=== PATIENT | female | born 1970 | race Caucasian/White ===

== ENCOUNTER 2017-06-28 07:37 | Inpatient (IN) | payer BC ==
[~2017-06-28] VITALS: Ht 165.1 cm; Wt 95.7 kg
[~2017-06-28 07:37] MED LIST: BACITRACIN 50,000 UNIT VIAL ONE; BUPIVACAINE 7.5MG/ML /DEXTROSE 82.5MG/ML 2 ML AMP INJ ONE; CEFAZOLIN SOD 2 GM/D5W 50ML 50 ML IV ONE; CELECOXIB 200 MG CAP ONE; DEXAMETHASONE SOD PHOS 10 MG/1 ML VIAL ONE; GABAPENTIN 300 MG CAP ONE; HYDROGEN PEROXIDE 120 ML BTL ONE; LOSARTAN POTASS25 MG; MELATONIN3 MG PO; MUPIROCIN 2% OINT 22 GM TUBE ONE; PREVACID30 M1; ROPIVACAINE 246.25 MG, EPINEPHRINE HCL 1:1000 0.5 MG, CLONIDINE HCL 0.08 MG, KETOROLAC ... INJ ONE; TRANEXAMIC ACID 1,000 MG/10 ML ML ONE; TRAVATAN Z5 ML OP; ZYRTEC10 M3
[2017-06-28] MEDS ORDERED: DOCUSATE SODIUM 100 MG CAP PO PRN (08:45)
[2017-06-28] MEDS ORDERED: ONDANSETRON HCL INJ 2 MG/ML VIAL IV PRN (08:45)
[2017-06-28] MEDS ORDERED: PROMETHAZINE HCL (IM) 25 MG/ML VIAL IM PRN (08:45)
[2017-06-28] MEDS ORDERED: ACETAMINOPHEN 650 MG SUPP PR PRN (08:45)
[2017-06-28] MEDS ORDERED: HYDROCODONE/APAP 7.5MG-325MG 1 EA TAB PO PRN (08:45)
[2017-06-28] MEDS ORDERED: DIPHENHYDRAMINE HCL INJ 50 MG/ML VIAL IM/IV PRN (08:45)
[2017-06-28] MEDS ORDERED: CELECOXIB 100 MG CAP PO SCH (09:00)
--- NOTE | 2017-06-28 09:21 | Diagnostic Imaging Report ---
PROCEDURE:X-RAY PELVIS, AP VIEW COMPARISON:None. INDICATIONS:STATUS POST RIGHT HIP SURGERY FINDINGS: Postoperative changes right total hip arthroplasty. The acetabular and femoral stem components are in proper position. No kake bone or hardware fracture is identified. Skin michael are noted. Subcutaneous air is present. There are no acute fractures, dislocations, lytic or blastic lesions. The bones are well-mineralized. The soft-tissues are unremarkable. CONCLUSION: Right total hip arthroplasty. Dictated by: Jovan Ybarra M.D. on 06/28/2017 at 9:21 Electronically approved by: Jovan Ybarra M.D. on 06/28/2017 at 9:21
--- OUTSIDE RECORDS SUMMARY | 2017-06-28 09:52 | XMS REPORT ---
[facility] Address Unknown Phone Unavailable Care Team Providers [employer] Foreman Name Role Phone VIRGINIA HENSON Unavailable Unavailable Problems This patient has no known problems. Allergies, Adverse Reactions, Alerts This patient has no known allergies or adverse reactions. Medications This patient has no known medications. Results Test Description Test Time Test Comments Text Results Atomic Results Result Comments PELVIS AP 1-2 VIEWS [place] [address] Patient Name: LAWRENCE GERARD MR #: [id number] : 1970 Age/Sex: 46/F Req #: [id number] Adm Physician: Ordered by: VIRGINIA HENSON MD Report #: [id number] Location: OR Room/Bed: Procedure: [id number] DX/PELVIS AP 1-2 VIEWS Exam Date: 06/28/17 Exam Time: 0850 REPORT STATUS: Signed PROCEDURE: X-RAY PELVIS, AP VIEW COMPARISON: None. INDICATIONS: STATUS POST RIGHT HIP SURGERY FINDINGS: Postoperative changes right total hip arthroplasty. The acetabular and femoral stem components are in proper position. No [place] tribe bone or hardware fracture is identified. Skin michael are noted. Subcutaneous air is present. There are no acute fractures, dislocations, lytic or blastic lesions. The bones are well-mineralized. The soft-tissues are unremarkable. CONCLUSION: Right total hip arthroplasty. Dictated by: Kj Santamaria M.D. on 06/28/2017 at 9:21 Electronically approved by: Kj Santamaria M.D. on 06/28/2017 at 9:21 Dictated By: KJ SANTAMARIA MD 0 COPY TO: VIRGINIA HENSON MD
[2017-06-28 10:00] VITALS: BP 95/50
[2017-06-28 11:18] VITALS: BP 95/50
[2017-06-28] MEDS: ACETAMINOPHEN 1000 MG/100 ML IV SCH ×3 (12:00→23:17)
[2017-06-28 12:34] VITALS: BP 111/56
[2017-06-28] MEDS: ASPIRIN 325 MG TAB PO SCH ×2 (13:15→17:00)
[2017-06-28] MEDS: SODIUM CHLORIDE 0.9% 1000ML 1,000 ML IV SCH ×2 (13:30→18:44)
--- NOTE | 2017-06-28 13:48 | Operative Report ---
DATE OF PROCEDURE: June 28, 2017 CHEMICAL TECHNICIAN: Andrea Daniel PA-C The patient was brought to the operating room for induction of anesthesia. Throughout this case, my PA's assistance was necessary for retraction of soft tissue and positioning of the extremity. This allows for efficient and technically successful execution of the operation and is considered medically necessary. PREOPERATIVE DIAGNOSIS: Avascular necrosis right hip. POSTOPERATIVE DIAGNOSIS: Avascular necrosis right hip. PROCEDURE: Right total hip arthroplasty. 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 She has a long history of back problems and has been through back surgeries on a couple of occasions. She received steroids during her treatment for the back issues. 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 The findings and options have been explained. The patient would like to proceed with a right total hip replacement. The risks and benefits have been discussed. She states she understands and wishes to proceed. DESCRIPTION OF PROCEDURE: The patient was brought to the operating room and given a spinal anesthetic. She was then given a general anesthetic and positioned in the left lateral decubitus position. Her right hip was prepped and draped in a sterile manner. A limited incision posterior approach was made to the right hip. Hemostasis was obtained with electrocautery. Care was taken to avoid injury to the sciatic nerve. A Charnley self-retaining retractor was placed. The posterior capsule and short external rotators were released. The hip was dislocated, and an oscillating saw was used to resect the femoral head. There was subchondral collapse and fragmentation of the articular cartilage of the femoral head. Autologous bone graft was taken from the femoral neck and head in preparation for the impacting in the acetabular subchondral cyst. Acetabular retractors were placed. The true floor of the acetabulum was established with a 46 mm reamer. The socket was then carefully reamed to 53 mm. Large subchondral cysts were debrided. These were impaction grafted with autologous bone graft. A [employer] OsseoTi socket was then impacted into place. This was 54 mm in outer diameter. A highly crosslinked polyethylene liner was then seated into place. Care was taken to make sure that there was no evidence of soft-tissue interposition. Throughout the case, the hip had been thoroughly irrigated with a shower-tip pulsatile lavage. A portion of a 100 mL premixed pericapsular JOSETTE injection was placed around the soft tissue. The socket was packed with a moistly soaked lap sponge. Attention was directed towards the proximal femur. A taper pin reamer was used to further establish entry into the femoral canal. The [employer] Taperloc broaches were trialed. A size 11 stem had good canal stability. Trial reductions were performed. A standard 36 mm head was felt to provide appropriate yarsani in limb length and good stability. The trial implants were removed. The hip was further irrigated with a shower-tip pulsatile lavage. The remainder of the pericapsular injection was placed into the more superficial soft tissue. The implants were seated, and a final reduction was performed. Once again, the hip was put through a range of motion and felt to be stable. The posterior capsule was carefully repaired with interrupted number 2 Ethibond. The piriformis was repaired with number 2 Ethibond. The tensor fascia was closed with interrupted number 2 Ethibond. The skin was closed with subcuticular Vicryl and michael. A sterile bandage was applied. The patient was returned to the supine position and extubated. She was transported to the recovery room in stable condition. Blood loss was approximately 75 mL, and at the end of the procedure all needle and sponge counts were correct. Job#: [id number] LESLIE
[2017-06-28] MEDS: CEFAZOLIN SOD 1 GM VIAL IV SCH ×2 (14:00→21:06)
[2017-06-28] MEDS ORDERED: CEFAZOLIN SOD 1 GM/NS 50ML 50 ML IV SCH (14:00)
[2017-06-28] MEDS ORDERED: FENTANYL CITRATE/PF 100MCG/2 ML INJ ONE (15:02)
[2017-06-28] MEDS ORDERED: MIDAZOLAM HCL 2 MG/2 ML VIAL ONE (15:02)
[2017-06-28] MEDS ORDERED: LIDOCAINE HCL 2% LOCAL INJ 5 ML SDV VIAL INJ ONE (15:15)
[2017-06-28] MEDS ORDERED: PROPOFOL IV EMULSION 10 MG/ML 20 ML VIAL ONE (15:15)
[2017-06-28] MEDS ORDERED: ONDANSETRON HCL INJ 2 MG/ML VIAL ONE (15:15)
[2017-06-28] MEDS ORDERED: DEXAMETHASONE SOD PHOS INJ 4 MG/ML VIAL ONE (15:15)
[2017-06-28] MEDS ORDERED: ACETAMINOPHEN 1000 MG/100 ML IV ONE (15:15)
[2017-06-28] MEDS ORDERED: SEVOFLURANE INHAL SOLN 250 ML PEN BTL ONE (15:15)
[2017-06-28 16:54] VITALS: BP 105/61
[2017-06-28] MEDS: CELECOXIB 200 MG CAP PO SCH (17:03)
[2017-06-28 20:00] VITALS: BP 105/57
[2017-06-28] MEDS: KETOROLAC TROMETHAMINE 30 MG/ML VIAL IV PRN (20:53)
[2017-06-28] MEDS ORDERED: ZOLPIDEM TARTRATE 5 MG TAB PO PRN (21:00)
[2017-06-29] VITALS: BP 113/55
[2017-06-29 01:08] VITALS: BP 113/55
[2017-06-29] MEDS: KETOROLAC TROMETHAMINE 30 MG/ML VIAL IV PRN (03:32)
[2017-06-29] MEDS: HYDROCODONE/APAP 5MG-325MG TAB PO PRN ×2 (03:39→09:14)
[2017-06-29] MEDS: SODIUM CHLORIDE 0.9% 1000ML 1,000 ML IV SCH (04:10)
[2017-06-29] MEDS: ACETAMINOPHEN 1000 MG/100 ML IV SCH (05:44)
[2017-06-29] MEDS: CEFAZOLIN SOD 1 GM VIAL IV SCH (05:44)
[2017-06-29 06:50] LABS: HEMATOCRIT 30.9 % (34.2-44.1); HEMOGLOBIN 10.3 g/dL (12.0-16.0)
[2017-06-29 08:00] VITALS: BP 109/59
[2017-06-29] MEDS: ASPIRIN 325 MG TAB PO SCH (08:26)
[2017-06-29] MEDS: CELECOXIB 200 MG CAP PO SCH (08:27)
[2017-06-29] MEDS ORDERED: ACETAMINOPHEN 1000 MG/100 ML IV PRN (08:45)
[2017-06-29] MEDS ORDERED: ASPIRIN325 MG PO (10:25)
[2017-06-29 12:00] VITALS: BP 96/56
== END 2017-06-29 13:45 | disposition home health service (06) | DRG 470 ==
LOC: OR 07:37 → MED/SURG 09:50
PROVIDERS: ADMIT Specialist; ATTEND Specialist
PROC: 0SR90JZ Replacement of Right Hip Joint with Synthetic Substitute, Open Approach (ICD-10-PCS; principal; 2017-06-28 07:30)
DX: M87.851 Other osteonecrosis, right femur (principal); D64.9 Anemia, unspecified; H40.9 Unspecified glaucoma
CPT/HCPCS: 36415; 72170; 81025; 85014; 85018; 86850; 86900; 86920; 88305; 88311; J0171; J0690; J1100; J1885; J2001; J2250; J2405; J2795; J7030